=== PATIENT | female | born 1955 | race Caucasian/White ===

== ENCOUNTER 2018-01-01 06:32 | Emergency (ER) | payer BC ==
--- NOTE | 2018-01-02 03:35 | ER ---
DATE SEEN: 01/01/2018 TIME SEEN: The patient was seen at 0700 hours. HISTORY OF PRESENT ILLNESS: This 62-year-old woman comes in with a history of right lower quadrant pain that radiates to her back. It is 8/10 in intensity. Onset today. She has used ice and heat on this. It did not make any difference. It is sharp. She has intermittent cough that is baseline. No nausea, vomiting, diarrhea, constipation, hematochezia, or previous abdominal surgery. She is 2, para 2-0-0-2. She denies fever or headache. REVIEW OF SYSTEMS: HEENT: Denies soreness, rhinorrhea, sore throat, difficulty hearing, although her hearing slightly decreased on examination. CARDIORESPIRATORY: Denies chest pain, shortness of breath, cough, near syncope, syncope, or palpitations. No chest wall discomfort. No chest wall trauma or heavy lifting. GI: As noted above. No history of GERD or jaundice or any abdominal surgery. : Denies history of kidney stones. No frequency, urgency, or dysuria. MUSCULOSKELETAL: Denies arthritis or myalgia or pedal edema. PSYCHIATRIC: Negative. NEUROLOGICAL: Negative. PHYSICAL EXAMINATION: VITAL SIGNS: Blood pressure 157/76, repeated 143/70; heart rate 75; respirations 17; oxygen saturation 98% on room air. Temperature 36.7 degrees centigrade. GENERAL: Alert woman, somewhat asthenic, 89.81 kg with a BMI of 30.1 kg/m2. Pleasant, well dressed, appropriate and in mild distress. HEENT: PERRLA intact. Pharynx without abnormality and gag in place. Uvula midline and tongue midline. No thyromegaly. No cervical adenopathy. No bruits in the neck. No masses. No tracheal tug. LUNGS: Clear without rales, rhonchi, or wheezes. HEART: S1, S2. No irregular rate rhythm. ABDOMEN: Soft. Mild guarding to the lateral right lateral flank and right superior iliac crest with pressure on the muscle. [id number] CVA percussion tenderness. No groin tenderness. No hernia demonstrated. No abdominal incisions noted. EXTREMITIES: Without abnormality. No pedal edema. Deep tendon reflexes normal in the upper and lower extremities. Cranial nerves 2 through 12 intact. Oriented x2. Gait intact. Strength intact. IMAGING DATA: CAT scan was performed of the abdomen. No abnormalities demonstrated. No stones noted. No bowel abnormalities. No diverticulitis, diverticulosis, or bowel obstruction. No hernia demonstrated. LABORATORY FINDINGS: WBCs 9300, PMNs 75, lymphocytes 20, monos 4, hemoglobin 15, platelets 480,000 - thrombocythemia. Complete metabolic panel is normal except for glucose of 129 and total protein 8.2. Urinalysis was negative, rare bacteria. CAT scan did not demonstrate appendicitis. Denies bowel obstruction or diverticulitis or cholelithiasis. Repeat examination of the abdomen demonstrate muscle discomfort of the external abdominal oblique and the parts of the internal abdominal pain, but mostly external abdominal oblique. With pressure, has had muscle wall pain. ASSESSMENT: Muscle strain. The patient reassured. Follow up with doctor in a week or earlier if worse. Medications; hydrocodone was prescribed 12 tablets p.r.n. pain. Take Yessy-Colace or Colace twice a day to diminish the potential for narcotics. /[id number] MARVIN/EHSAN
== END 2018-01-01 09:23 | disposition home or self-care (01) ==
LOC: FB.ED 06:32
DX: S39.011A Strain of muscle, fascia and tendon of abdomen, initial encounter (principal); X58.XXXA Exposure to other specified factors, initial encounter
CPT/HCPCS: 36415; 74176; 80053; 81001; 82150; 83605; 85025; 99284

== ENCOUNTER 2023-05-04 05:45 | Day surgery (SDC) | payer OTHER ==
[2023-05-04] MEDS ORDERED: Propofol 200 MG/20 ML SDV IV ONE (05:46)
[2023-05-04] MEDS ORDERED: Lidocaine 2% 5 ML SDV IV ONE (05:46)
[2023-05-04] MEDS ORDERED: Sodium Chloride 0.9% 10 ML Syringe FLUSH PRN (06:15)
[2023-05-04] MEDS ORDERED: Lactated Ringers 1,000 ML IV SCH (06:15)
[2023-05-04] MEDS ORDERED: Simethicone Drops 40 MG/0.6 ML 30 ML Bottle PO ONE (07:32)
== END 2023-05-04 08:43 | disposition home or self-care (01) ==
LOC: FB.SDS 05:45
PROVIDERS: ATTEND Surgery
DX: Z12.11 Encounter for screening for malignant neoplasm of colon (principal); Q43.8 Other specified congenital malformations of intestine; E78.5 Hyperlipidemia, unspecified; F17.210 Nicotine dependence, cigarettes, uncomplicated; E66.9 Obesity, unspecified; Z79.82 Long term (current) use of aspirin; Z79.899 Other long term (current) drug therapy; Z80.0 Family history of malignant neoplasm of digestive organs; Z68.30 Body mass index [BMI] 30.0-30.9, adult
CPT/HCPCS: 00812; A9270-GY; J2704; J7120